=== PATIENT | male | born 1945 | race Caucasian/White ===

== ENCOUNTER 2018-05-03 00:05 | Emergency (ER) | payer MEDICARE, OTHER ==
--- NOTE | 2018-05-03 00:09 | ED Physician Documentation ---
PD HPI HEAD INJURY - Stated complaint Stated Complaint: HEAD LAC - History obtained from History obtained from: Patient - History of Present Illness Mechanism of head injury: Fell Where head injury occurred: Home Timing - onset: How many minutes ago (approximately 30-40 minutes [employer]) Pain level now: 0 Location of injury: Left, Front Associated symptoms: No: LOC, AMS, Amnesia, Nausea / vomiting, Neck pain, Paresthesias Contributing factors: No: Anticoagulated, Intoxicated Recently seen: Not recently seen - Additional information Additional information: tripped and fell, struck forehead onto wood-burning stove, sustained forehead laceration. He also sustained left hand burn when his hand touched the stove. Denies LOC, denies MART Review of Systems Musculoskeletal: reports: Other (left hand burn but he denies having any pain (also reports no significant pain associated with the forehead laceration)). denies: Neck pain Neurologic: reports: Head injury. denies: Focal weakness, Numbness, Confused, Altered mental status, Headache, LOC PD PAST MEDICAL HISTORY - Past Medical History Past Medical History: No - Present Medications Home Medications: Ambulatory Orders Medication Instructions Recorded Confirmed Ascorbic Acid [Vitamin C] 1,000 mg PO DAILY 05/03/18 05/03/18 Aspirin [Adult Aspirin] 81 mg PO DAILY 05/03/18 05/03/18 Multivitamin [Multiple Vitamins] 1 tab PO DAILY 05/03/18 05/03/18 - Allergies Allergies/Adverse Reactions: Allergies Allergy/AdvReac Type Severity Reaction Status Date / Time No Known Drug Allergies Allergy Verified 05/03/18 00:15 - Living Situation Living Situation: reports: With spouse/s.o. Living Arrangement: reports: At home PD ED PE NORMAL - Vitals Vital signs reviewed: Yes - General General: Alert and oriented X 3, No acute distress, Well developed/nourished - HEENT HEENT: PERRL, EOMI - Neck Neck: No bony TTP PD ED PE EXPANDED - HEENT HEENT Visual: 1 - laceration (4 cm length without active bleeding; no bony tenderness) - Extremities HUBERT UE/Hands Visual: 1 - swelling (first degree burn without significant tenderness) Results - Vitals Vitals: Vital Signs - 24 hr 05/03/18 05/03/18 00:12 01:52 Temperature 36.8 C Heart Rate 85 84 Respiratory 18 16 Rate Blood Pressure 166/96 H 144/96 H O2 Saturation 96 96 Oxygen O2 Source Room air Procedures - Laceration (location) Face left Length in cm: 4 Wound type: Linear, Into subcut fat Neurovascular status: Sensory intact, Motor intact, Vascular intact Anesthesia: Lidocaine 1% Wound Preparation: Chlorhexadine, Irrigated copiously NS, Wound explored, To the base. No: FB identified Skin layer closure: Nylon, Interrupted, Running, Size #-0 - enter number (5-0), Other (combination of running and interrupted sutures) Other: Patient tolerated well, No complications, Neurovascular intact, Tetanus booster given Complexity: Simple PD MEDICAL DECISION MAKING - ED course Complexity details: considered differential, d/w patient, d/w family Departure - Departure Disposition: 01 Home, Self Care Clinical Impression: Laceration Condition: Good Instructions: ED Laceration Facial Sutr Tape Follow-Up: GREGG Will [Provider Group] Comments: Follow up with your primary care provider in 7-10 days for removal of the stitches. Apply an antibiotic ointment (such as bacitracin, neosporin, polysporin) twice per day until the stitches are removed. Discharge Date/Time: 05/03/18 01:53
[2018-05-03] MEDS ORDERED: LIDOCAINE 1% 2 ML VIAL SUBQ STA (00:33)
[2018-05-03] MEDS ORDERED: LIDOCAINE 1% 2 ML VIAL ONE (00:34)
[2018-05-03] MEDS ORDERED: BACITRACIN OINT TOP STA (01:24)
[2018-05-03] MEDS ORDERED: TETANUS/DIPHTHERIA/PERTUSSIS 0.5 ML SYRINGE IM ONE (01:24)
[2018-05-03 01:53] VITALS: BP 144/96
== END 2018-05-03 01:53 | disposition home or self-care (01) ==
LOC: ED 00:05
DX: S01.81XA Laceration without foreign body of other part of head, initial encounter (principal); T23.102A Burn of first degree of left hand, unspecified site, initial encounter; T31.0 Burns involving less than 10% of body surface; X15.0XXA Contact with hot stove (kitchen), initial encounter; Y92.009 Unspecified place in unspecified non-institutional (private) residence as the place of occurrence of the external cause; Z23 Encounter for immunization
CPT/HCPCS: 12013; 90471; 90715; 99282; 99283; A9270

== ENCOUNTER 2023-07-14 13:31 | Inpatient (IN) | payer MEDICARE, OTHER ==
--- NOTE | 2023-07-14 14:11 | ED Physician Documentation ---
PD HPI ALTERED MENTAL STATUS - Stated complaint Stated Complaint: CONFUSION - Chief complaint Chief Complaint: Neuro - History obtained from History obtained from: Patient - History of Present Illness Timing - onset: How many weeks ago (notable new symptoms of confusion, word search, but no focal deficits. Has not been to primary care provider for many years. has noted more considerable confusion the past several days.) Timing - duration: Weeks (up to a month or two.) Timing - details: Gradual onset, Still present Quality / character: Confused, Memory Loss Associated symptoms: No: Fever, Headache, Dyspnea, Cough Contributing factors: No: Diabetic, New medication, Recent illness, Recent injury Basline status: Alert and oriented X 3, Ambulatory (works yard and house projects typically.) Similar symptoms before: Has not had sx before Recently seen: Not recently seen (not for several years.) Review of Systems Constitutional: denies: Fever Nose: denies: Rhinorrhea / runny nose, Congestion Throat: denies: Sore throat Respiratory: denies: Cough GI: denies: Abdominal Pain, Vomiting, Diarrhea, Bloody / black stool : reports: Frequency, Hesitancy. denies: Dysuria, Hematuria Skin: denies: Rash, Lesions Neurologic: reports: Generalized weakness. denies: Focal weakness, Near syncope, Headache, Head injury Psychiatric: reports: Other (up often during night to urinate. Feels sleepy during days often. states he only snores some and she has not noted him having apneas.). denies: Depressed Endocrine: denies: Weight loss PD PAST MEDICAL HISTORY - Past Medical History Past Medical History: No Cardiovascular: None Respiratory: None Neuro: None Endocrine/Autoimmune: None GI: None : None HEENT: Chronic hearing loss Psych: None Musculoskeletal: None Derm: None - Past Surgical History Past Surgical History: Yes General: Appendectomy - Present Medications Home Medications: Ambulatory Orders Medication Instructions Recorded Confirmed Ascorbic Acid [Vitamin C] 1,000 mg PO DAILY 05/03/18 05/03/18 Aspirin [Adult Aspirin] 81 mg PO DAILY 05/03/18 05/03/18 Multivitamin [Multiple Vitamins] 1 tab PO DAILY 05/03/18 05/03/18 - Allergies Allergies/Adverse Reactions: Allergies Allergy/AdvReac Type Severity Reaction Status Date / Time No Known Drug Allergies Allergy Verified 07/14/23 13:35 - Living Situation Living Situation: reports: With spouse/s.o. Living Arrangement: reports: At home - Social History Does the pt smoke?: No Smoking Status: Never smoker Does the pt drink ETOH?: Yes Does the pt have substance abuse?: No - Immunizations Immunizations are current?: Yes - POLST Patient has POLST: No PD ED PE NORMAL - Vitals Vital signs reviewed: Yes - General General: Alert and oriented X 3, No acute distress, Well developed/nourished - HEENT HEENT: Atraumatic, PERRL, EOMI - Neck Neck: Supple, no meningeal sign, No adenopathy - Cardiac Cardiac: RRR, No murmur - Respiratory Respiratory: No respiratory distress, Clear bilaterally - Abdomen Abdomen: Normal bowel sounds, Soft, Non tender, Other (fullness in bladder area without tenderness. ) - Male Male : Deferred - Rectal Rectal: Deferred - Back Back: No CVA TTP - Derm Derm: Normal color, Warm and dry - Extremities Extremities: Normal ROM s pain, No edema, No calf tenderness / cord - Neuro Neuro: Alert and oriented X 3 (some mild word search and incomplete sentence structure. But otherwise content is appropriate. 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, No motor deficit, No sensory deficit, Normal speech Eye Opening: Spontaneous Motor: Obeys Commands Verbal: Oriented GCS Score: 15 Results - Vitals Vitals: Vital Signs - 24 hr 07/14/23 07/14/23 13:35 15:39 Temperature 36.5 C Heart Rate 87 90 Respiratory 16 16 Rate Blood Pressure 165/90 H 166/90 H O2 Saturation 99 98 Oxygen O2 Source Room air - Labs Labs: Laboratory Tests 07/14/23 07/14/23 07/14/23 14:11 14:53 14:53 WBC 6.5 RBC 3.52 L Hgb 10.9 L Hct 33.3 L MCV 94.6 H MCH 31.0 MCHC 32.7 RDW 13.4 Plt Count 235 MPV 10.3 Neut # (Auto) 5.1 Lymph # (Auto) 0.7 L Lares # (Auto) 0.6 Eos # (Auto) 0.0 Baso # (Auto) 0.0 Absolute Nucleated RBC 0.00 Nucleated RBC % 0.0 ESR 45 H PT INR Sodium Potassium Chloride Carbon Dioxide Anion Gap BUN Creatinine Estimated GFR (MDRD) Glucose Calcium Phosphorus Magnesium Total Bilirubin AST ALT Alkaline Phosphatase Total Protein Albumin Globulin Albumin/Globulin Ratio Lipase Vitamin B12 TSH Urine Color STRAW Urine Clarity CLEAR Urine pH 6.5 Ur Specific [place] <=1.005 Urine Protein NEGATIVE Urine Glucose (UA) NEGATIVE Urine Ketones NEGATIVE Urine Occult Blood NEGATIVE Urine Nitrite NEGATIVE Urine Bilirubin NEGATIVE Urine Urobilinogen 0.2 (NORMAL) Ur Leukocyte Esterase NEGATIVE Ur Microscopic Review NOT INDICATED Urine Culture Comments NOT INDICATED 07/14/23 07/14/23 14:53 15:15 WBC RBC Hgb Hct MCV MCH MCHC RDW Plt Count MPV Neut # (Auto) Lymph # (Auto) Lares # (Auto) Eos # (Auto) Baso # (Auto) Absolute Nucleated RBC Nucleated RBC % ESR PT 12.0 INR 1.1 Sodium 136 Potassium 5.9 H Chloride 104 Carbon Dioxide 21 Anion Gap 11.0 BUN 74 H Creatinine 7.0 H* Estimated GFR (MDRD) 8 L Glucose 94 Calcium 9.1 Phosphorus 5.1 H Magnesium 2.4 H Total Bilirubin 0.3 AST 7 L ALT 11 Alkaline Phosphatase 132 H Total Protein 7.5 Albumin 3.8 Globulin 3.7 Albumin/Globulin Ratio 1.0 Lipase 23 Vitamin B12 829 TSH 2.38 Urine Color Urine Clarity Urine pH Ur Specific [place] Urine Protein Urine Glucose (UA) Urine Ketones Urine Occult Blood Urine Nitrite Urine Bilirubin Urine Urobilinogen Ur Leukocyte Esterase Ur Microscopic Review Urine Culture Comments - Rads (name of study) head CT Relevant Findings:: Prelim report reviewed (confluent occipital white matter disease. Broad differential. Recommend brain MRI with and without contrast.), EMP independent interpretation of test abd/pelvic CT Relevant Findings:: Prelim report reviewed (enlarged prostate irregularly with apparent invasion to wall of rectum. Bladder thickening could be due to outlet obstruction chronic. osteoblastic bone lesions. c/w met prostate CA. ), EMP independent interpretation of test (enlarged prostate. Wang in bladder. hydroureter and nephrosis. Thickened bladder wall. bone lesions in spine.) PD Medical Decision Making - ED course Complexity details: reviewed results, considered differential (confusion and some expressive aphasia, with general weakness graudally but relatively new onset of weeks/month. Broad differential and will eval metabolic, brain, endocrine, etc. Less likely infectious, and does not take meds so unlikely toxic. ), d/w jewelry consultant (Hospitalist - with uremia likely representing most of his symptoms, due to outlet obstruction. Pending CT reports.) Reviewed Lab Results: Most notable is the patient's creatinine of 7. He has not been to a provider for a long time and we have no reason to her available prior labs for him. Electrolytes are slightly elevated of potassium, magnesium, phosphorus so unlikely a totally acute renal failure. He does have a large amount of urine in the bladder by bladder scanner and had a Wang placed with initially clear urine out. It did have a little bit of blood subsequently which then cleared again. Nursing notes some resistance at the level of the prostate but able to get the Wang placed without any special techniques. CT of the head showed general diffuse posterior white matter abnormality. MRI was recommended. Consideration would be edema or effect of blood pressure. CT of the abdomen pelvis showed enlarged prostate and bladder wall thickening with outlet obstruction of hydro nephrosis and hydroureter. Wang is in place. There are bone lesions noted in the spine and some attachment of the prostate to the rectal wall suggesting invasive or metastatic process. The patient and his are kept apprised of the lab findings. At this point no signs of diabetes. Thyroid is normal. Kidney function electrolytes as noted. Blood count is good without any anemia. Inflammatory changes show an elevated ESR of 45. I will add a PSA. Other labs to look for confusion etc. are still pending which include some vitamin levels. Departure - Departure Disposition: 66 [facility] DC/Xfer Clinical Impression: Acute bilateral obstructive uropathy, Elevated serum creatinine, Acute kidney injury, Enlarged prostate, Abnormal CT scan of head Condition: Stable Record reviewed to determine appropriate education?: Yes Follow-Up: Bernardo Gary MD [Provider Admit Priv/Credential] - Comments: At this point the main symptoms likely are related to an improper filtering and functioning of the kidneys due to a blockage at the out put of the bladder (most likely from an enlarged prostate). This will cause a back pressuring of the urine up into the kidneys so they do not filter appropriately and you can accumulate "waste material" in the system. 1 of these is called creatinine and your creatinine level was elevated at 7 which is well above normal. This accumulation in the bloodstream can cause the confusion and symptoms you are having. Commonly this will improve fairly promptly as the urine flow improves with the catheter. Your electrolytes were a bit elevated in correlation with the impaired urine output. There were not significant elevated but potassium, phosphorus, magnesium were all a bit elevated. Your head CT scan was showing some general change in the density of the tissue. This is nonspecific and an MRI was recommended by the radiologist. We can do this tomorrow most likely. We are having you stay in the hospital overnight to ensure you have improvement in your blood test functions in the urine flow remains appropriate and to get further testing tomorrow. Forms: PCP List
[2023-07-14 14:57] LABS: BASOPHILS % (AUTO) 0.6 %; EOSINOPHILS % (AUTO) 0.6 %; HCT - HEMATOCRIT 33.3 % (42.0-52.0); HGB - HEMOGLOBIN 10.9 g/dL (14.0-18.0); LYMPHOCYTES # (AUTO) 0.7 10^3/uL (1.5-3.5); LYMPHOCYTES % (AUTO) 10.6 %; MEAN CORPUSCULAR HGB CONC 32.7 g/dL (32.0-36.0); MEAN CORPUSCULAR VOLUME 94.6 fL (80.0-94.0); MEAN PLATELET VOLUME 10.3 fL (7.4-11.4); MONOCYTES # (AUTO) 0.6 10^3/uL (0.0-1.0); NEUTROPHILS # (AUTO) 5.1 10^3/uL (1.5-6.6); NEUTROPHILS % (AUTO) 78.9 %; PLT - PLATELET COUNT 235 10^3/uL (130-450); RED BLOOD COUNT 3.52 10^6/uL (4.70-6.10); RED CELL DISTRIBUTION WIDTH 13.4 % (12.0-15.0); WHITE BLOOD COUNT 6.5 x10^3/uL (4.8-10.8)
[2023-07-14 15:07] LABS: BILIRUBIN,URINE NEGATIVE (NEGATIVE); GLUCOSE, URINE (UA) NEGATIVE (NEGATIVE); KETONES,URINE (UA) NEGATIVE (NEGATIVE); LEUKOCYTE ESTERASE, URINE NEGATIVE (NEGATIVE); NITRITE,URINE NEGATIVE (NEGATIVE); OCCULT BLOOD,URINE NEGATIVE (NEGATIVE); PH,URINE 6.5 PH (5.0-7.5); PROTEIN,URINE NEGATIVE (NEGATIVE); UROBILINOGEN,URINE 0.2 (NORMAL) E.U./dL (NORMAL)
[2023-07-14 15:10] LABS: CLARITY,URINE CLEAR (CLEAR)
[2023-07-14 15:25] LABS: MAGNESIUM 2.4 mg/dL (1.7-2.3); PHOSPHORUS 5.1 mg/dL (2.5-5.0)
[2023-07-14 15:27] LABS: ALBUMIN 3.8 g/dL (3.2-5.5); BILIRUBIN,TOTAL 0.3 mg/dL (0.2-1.0); CALCIUM 9.1 mg/dL (8.5-10.3); POTASSIUM 5.9 mmol/L (3.5-4.5); THYROID STIMULATING HORMONE 2.38 uIU/mL (0.34-5.60); TOTAL PROTEIN 7.5 g/dL (6.4-8.9)
[2023-07-14 15:27] LABS: INR 1.1 (0.8-1.2)
--- NOTE | 2023-07-14 16:32 | CT Report ---
PROCEDURE: CT brain without contrast INDICATIONS: confused/ aphasia mild for month or more TECHNIQUE: Helical axial CT of the brain was obtained without contrast and reformatted in multiple p lanes. Radiation dose reduction was achieved using automated exposure control or adjustment of mA and /or kV according to patient size. COMPARISON: None FINDINGS: CSF spaces: Ventricles are appropriate in size and position. No hydrocephalus. Basal cisterns unre markable. Brain: No midline shift. No intracranial masses or hemorrhage. [place]-white matter interface is norm al. Age-appropriate volume loss. Additionally, there is confluent white matter hypoattenuation parti cularly prominent in the occipital lobes bilaterally. Much smaller associated cortical involvement no hi as well Skull and face: Chronic appearing left mucosal sinus disease involves the left maxillary, frontal an d atelectatic left sphenoid sinus with wall thickening and near complete sinus opacification Sinuses: Visualized sinuses and mastoids are clear. IMPRESSION: Confluent occipital white matter disease. Differential is broad and include posterior reversible ence phalopathy syndrome, infectious/inflammatory etiologies, unusual chronic ischemic change, and less li lu cerebral vasogenic edema resulting from nonvisualized underlying mass lesion. Advise follow-up M WA brain with and without contrast Reviewed by: Be Zendejas MD on 07/14/2023 3:31 PM AKST Approved by: Be Zendejas MD on 07/14/2023 3:31 PM AKST Station ID: [id number]
--- NOTE | 2023-07-14 16:54 | CT Report ---
PROCEDURE: CT abdomen and pelvis without contrast INDICATIONS: urinary retention/ confusion TECHNIQUE: Helical axial CT of the abdomen and pelvis was obtained without intravenous contrast and reformatted in multiple planes. Radiation dose reduction was achieved utilizing automated exposure co ntrol or adjustment of mA and/or kV according to patient size. COMPARISON: None. FINDINGS: Lower thorax: The lung bases are clear. Heart size normal. Moderatehiatal hernia. Liver: Normal in size and attenuation. No contour deformity present. Biliary system: Cholelithiasis without CT evidence of acute cholecystitis Pancreas: Unremarkable without mass or inflammation evident. Spleen: Normal in size and density. Adrenals: Normal morphology and density. Reproductive system: Irregular enlarged prostate elevates the bladder floor and grossly measures 8.6 x 5.4 x 4.3 cm. However, prostate is contiguous with anterior wall of the rectum which also shows ir regular wall thickening probably reflecting direct invasion of prostate cancer. No bowel obstruction. Urinary system: Severe bilateral hydronephrosis and hydroureter associated with circumferential irre gular wall thickening of the bladder. Wang catheter is present in the bladder as well as air reflect ing recent instrumentation noted. There is a 4 x 3.2 cm posteriorly oriented bladder diverticulum Gastrointestinal system: As below. Left-sided diverticulosis without evidence of diverticulitis no b owel obstruction Appendix: No findings to suggest acute appendicitis. Peritoneal spaces: No mesenteric or retroperitoneal adenopathy. No free air. No free fluid. Vasculature: The IVC, aorta and iliac vasculature are unremarkable. Abdominal wall: Abdominal wall is intact without evidence of ventral or inguinal hernias. Musculoskeletal: Diffuse osteoblastic metastasis noted throughout the lumbar spine, pelvis and proxi mal femurs. T12 wedge-shaped compression fracture. Old left femoral neck and acetabular fracture with subchondral cysts and irregular remodeling. Associated atrophy of the gluteal and right iliopsoas mu scle IMPRESSION: 1. Metastatic prostate cancer. Prostate is enlarged shows extracapsular local invasion of the rectum posteriorly as well as possible invasion of the bladder. Widespread osteoblastic metastatic disease. 2. Diffuse irregular bladder wall thickening. Differential includes direct invasion versus chronic ou tlet obstruction. Resultant bladder wall diverticulum as well as severe bilateral hydronephrosis 3. Additional chronic findings as above Reviewed by: Be Zendejas MD on 07/14/2023 3:52 PM AKST Approved by: eB Zendejas MD on 07/14/2023 3:52 PM AKST Station ID: [id number]
[2023-07-14] MEDS ORDERED: ONDANSETRON 4 MG/2 ML VIAL IVP PRN (17:23)
[2023-07-14] MEDS ORDERED: SODIUM CHLORIDE FLUSH 0.9% 10 ML SYRINGE IVP PRN (17:23)
--- NOTE | 2023-07-14 17:35 | HISTORY & PHYSICAL EXAMINATION ---
Chief Complaint - Chief Complaint Chief Complaint: Confusion <Andreea Sanchez - Last Filed: 07/17/23 14:55> History of Present Illness - Admitted From Admitted From:: ED - History Obtained From History obtained from: ED provider, the pt and his at bedside <Andreea Sanchez - Last Filed: 07/17/23 14:55> - History of Present Illness HPI Comment/Other: This is a 78-year-old male who has not seen a doctor in over 10 years and takes no prescription medications. He is brought in by his because of worsening confusion. She noticed that the confusion started about a month ago with trouble finding words and it is definitely worse over the past 1 week and this morning he said "How do I clear the code?", when he was washing dishes. He told his he did not know "which way was up or down." There has been increased urinary frequency and small amounts of urine eliminated. The patient himself thought he had diabetes because he was also thirsty, therefore he eliminated his sweets. With that, he lost 8 pounds in the last 1 month There has not been any fever, cough, dyspnea, abdominal pain, syncope, leg edema. In the ER he was found to have large amount of volume in his bladder on scanning and a Wang was inserted. 1400 cc was drained immediately and he another 2.5 L over several more hours. Brain CT imaging was done that showed an occipital mass of his brain with etiology having a large differential per the report, one of which could be metastasis, and an MRI was recommended. Abdomen/pelvis CT was done that showed a very enlarged prostate invading the rectum posteriorly, bilateral hydronephrosis and hydroureters, his Wang was seen draining the bladder. There are multiple areas of metastasis noted of the lumbar spine and femur. His labs came back showing a creatinine of 7 and potassium of 5.6. There are no prior labs for comparison at this hospital. Urinalysis was within normal limits. The ED provider spoke to me about this patient and he will be admitted to manage V[place], hyperkalemia, hydronephrosis and urinary obstruction from a very large prostate with probable prostatic cancer, since the large prostate is invading the neighboring colon and he has mets seen of the spine and femur and possibly to the brain. His CODE BLUE statis is Full Code. (LauraAndreea Sheth) History - Past Medical History Cardiovascular: reports: None Respiratory: reports: None Neuro: reports: None Endocrine/Autoimmune: reports: None GI: reports: None : reports: None HEENT: reports: Chronic hearing loss Psych: reports: None Musculoskeletal: reports: None Derm: reports: None - Past Surgical History General: reports: Appendectomy - Family & Social History Living arrangement: At home Living Situation: With spouse/s.o. Social History Notes: He is retired [employer]. He smoked when he was young. He drinks alcohol approximately 2 times per week or less. He has been "considering" going to a primary care provider but never scheduled an appointment. - POLST Patient has POLST: No <Andreea Sanchez - Last Filed: 07/17/23 14:55> Meds/Allgy <[place] Patel - Last Filed: 07/14/23 20:45> <Andreea Sanchez - Last Filed: 07/17/23 14:55> - Home Medications Home Medications: Ambulatory Orders Medication Instructions Recorded Confirmed No Known Home Medications 07/17/23 07/17/23 - Allergies Allergies/Adverse Reactions: Allergies Allergy/AdvReac Type Severity Reaction Status Date / Time No Known Drug Allergies Allergy Verified 07/14/23 13:35 Review of Systems - Constitutional Constitutional: reports: Weight loss (8 lb loss over 1 month, after cutting out sweets) - Eyes Eyes: reports: Corrective lenses - All Other Systems All Other Systems: reports: Other (As per HPI and reported by the since the patient is confused and can give no details.) <Andreea Sanchez - Last Filed: 07/17/23 14:55> Exam - Physical Exam General Appearance: positive: No acute distress, Alert Eyes Bilateral: positive: Normal inspection, EOMI ENT: positive: ENT inspection nml, No signs of dehydration Neck: positive: Nml inspection, No JVD Respiratory: positive: No respiratory distress, Breath sounds nml Cardiovascular: positive: Regular rate & rhythm, No murmur Abdomen: positive: Non-tender, Nml bowel sounds, No distention Rectal: positive: Other (Wang in place, draining bloody urine) Skin: positive: Warm, Dry Extremities: positive: Non-tender, No pedal edema Neurologic/Psychiatric: positive: Oriented x3, CN's nml (2-12), Motor nml, Other (Poor memory) <Andreea Sanchez - Last Filed: 07/17/23 14:55> - Vital Signs Vital Signs: Vital Signs x48h Temp Pulse Pulse Resp BP BP Pulse Ox 07/14/23 19:18 37.1 C 87 16 157/98 H 96 07/14/23 15:39 90 16 166/90 H 98 07/14/23 13:35 36.5 C 87 16 165/90 H 99 Conclusion/Plan - Lab Results Fish Bones: 07/14/23 14:53 07/14/23 14:53 <[place] Patel - Last Filed: 07/14/23 20:45> - Problem List (1) Acute kidney injury Conclusion/Plan: His creatinine is 7. We have no prior labs here and he has not seen a medical provider in over 10 years, for getting any other records. Plan: Continue with Wang for urinary bladder drainage and relief of the obstruction Start gentle IV fluids. Follow his I's and O's and expect him to have a postobstructive diuresis therefore IV rate will need to be increased Avoid nephrotoxins Follow BMP daily Check of his A1c, to check for DM, was sent off but result pending Will order a low-salt and renal diet (2) AMS (altered mental status) Conclusion/Plan: The cause may be from his uremia or due to the brain mass seen on head CT. His vital signs are normal and his TSH is normal. Plan: Monitor his neuro status Will obtain a brain MRI in the morning. Will consider a neurology consult and mannitol or steroids if there is suspicion of increased intracranial pressure from this mass Follow his BUN/creatinine daily and continue to treat the obstructive uropathy A check of thiamine level and vitamin D level were sent off but results are pending (3) Acute bilateral obstructive uropathy Conclusion/Plan: As per presentation and CT imaging Plan: Continue Wang for bladder drainage of the obstruction Follow his I's and O's and expect him to have a postobstructive diuresis therefore IV rate will need to be increased Follow BUN/creatinine daily He and the will need training for going home with a Wang catheter (4) Enlarged prostate Conclusion/Plan: It is very enlarged and also invading the neighboring colon making it highly suspicious for prostate cancer. In addition there are local mets to the spine and femur. Plan: Will need Urology evaluation and management A PSA level was sent off but result is still pending (5) Abnormal CT scan of head Conclusion/Plan: Findings are suspicious for a mass which therefore could be metastasis Plan: Monitor his neuro status Will obtain a brain MRI in the morning. Will consider a neurology consult and mannitol or steroids if there is suspicion of increased intracranial pressure from this mass (6) Hyperkalemia Conclusion/Plan: His potassium is 5.6. This is likly from his abnormal renal function. Plan: Monitor K every 12 hours and BMP daily Give insulin & D50 if it rises close to 6 Place on telemetry to watch for arrhythmias (7) HTN (hypertension) Conclusion/Plan: BP is running 166/90. Unknown if this was chronic and untreated or if it is elevated due to his presumably recent renal disease Plan: He will be started on IV fluids because postobstructive diuresis is expected Will give hydralazine for BP control Will order a low-salt and renal diet - Lab Results Fish Bones: 07/17/23 04:15 07/17/23 04:15 - Diagnostic Imaging Results Diagnostic Imaging Results: positive: Final report reviewed <Andreea Sanchez - Last Filed: 07/17/23 14:55> - Other Other Results/Comments: Attestation: The patient is expected to be hospitalized for greater than 2 midnights and is expected to be discharged or transferred to another facility within 96 hours: Yes (Andreea Sanchez)
[2023-07-14] MEDS: SODIUM CHLORIDE 0.9% 1,000 ML IV SCH ×2 (18:44→19:26)
[2023-07-14 20:55] LABS: ESTIMATED AVERAGE GLUCOSE 117 mg/dL (70-100); HEMOGLOBIN A1c% 5.7 % (4.27-6.07)
[2023-07-14] MEDS: HEPARIN 5,000 UNIT/ML VIAL SUBQ SCH (21:16)
[2023-07-15] MEDS: SODIUM CHLORIDE FLUSH 0.9% 10 ML SYRINGE IVP SCH (00:08)
[2023-07-15 05:42] LABS: HCT - HEMATOCRIT 36.9 % (42.0-52.0); HGB - HEMOGLOBIN 12.3 g/dL (14.0-18.0); MEAN CORPUSCULAR HEMOGLOBIN 31.5 pg (27.0-31.0); MEAN CORPUSCULAR HGB CONC 33.3 g/dL (32.0-36.0); MEAN CORPUSCULAR VOLUME 94.4 fL (80.0-94.0); MEAN PLATELET VOLUME 11.1 fL (7.4-11.4); RED BLOOD COUNT 3.91 10^6/uL (4.70-6.10); RED CELL DISTRIBUTION WIDTH 13.3 % (12.0-15.0); WHITE BLOOD COUNT 11.1 x10^3/uL (4.8-10.8)
[2023-07-15 05:57] LABS: CALCIUM 8.9 mg/dL (8.5-10.3); PHOSPHORUS 4.2 mg/dL (2.5-5.0)
--- NOTE | 2023-07-15 08:21 | PROVIDER PROGRESS NOTE ---
Assessment/Plan - Problem List (1) Postobstructive diuresis Assessment/Plan: After Wang was inserted, his urine output shows diuresis, as expected He is -6 L and fluid balance as of this morning Plan: Increase the IV NS rate to keep up with his fluid losses and add LR iv fluids as well I will give a bolus if he develops a "soft blood pressure" (2) Acute kidney injury Conclusion/Plan: His creatinine was 7 at adm. We have no prior labs here and he has not seen a medical provider in over 10 years, for getting any other records. I ordered a low-salt and renal diet All labs were reviewed. Today his creatinine is down to 3 Check of his A1c, to check for DM, came back at 5.7 Plan: Continue with Wang for urinary bladder drainage and relief of the obstruction Cont IV fluids. Follow his I's and O's and expect postobstructive diuresis, therefore IV rate to be increased Avoid nephrotoxins Follow BMP daily (3) AMS (altered mental status) Conclusion/Plan: The cause of his generalized confusion and poor memory may be from the uremia or due to the brain mass seen on head CT. His TSH is normal. His speech and responses are quicker today than at admission, as the BUN came down. Plan: Brain MRI to be done today. Will consider a neurology consultor mannitol or steroids if there is suspicion of increased intracranial pressure from this mass Follow his BMP daily and continue to treat the uremia A check of thiamine level and vitamin D level were sent off but results are pending (4) Acute bilateral obstructive uropathy Conclusion/Plan: As per presentation and CT imaging Plan: Continue Wang for bladder drainage of the obstruction Follow his I's and O's and expect postobstructive diuresis. Will try to keep intake closer to outpt Follow BUN/creatinine daily He and the will need training for going home with a Wang catheter (5) Enlarged prostate Conclusion/Plan: It is very enlarged and was described as invading the neighboring colon making it highly suspicious for prostate cancer. In addition there are local mets to the spine and femur. PSA was ordered by the ER provider. This is a send out lab. His EMR now shows that the PSA test is canceled, unclear why. I had a discussion with the pt and , revealing these results and suspision that he has prostate cancer with mets Plan: He will need Urology evaluation and management. Will reach out to [facility] tomorrow (Tues) to see if that needs to be an inpatient consult (6) Abnormal CT scan of head Conclusion/Plan: CT findings are suspicious for a mass which therefore could be metastasis Brain MRI was done this afternoon, results are still pending at 1900 Plan: I had a discussion with the pt and and discussed the suspicion of prostate cancer with mets Will consider a Neurology consult and mannitol or steroids if there is suspicion of increased intracranial pressure from this mass (7) Hyperkalemia Conclusion/Plan: His potassium was 5.9 at adm and is 5 today. This is likely from his abnormal renal function. Plan: Monitor K every 12 hours and BMP daily Give insulin & D50 if K rises close to 6 Remain on telemetry to watch for arrhythmias (8) HTN (hypertension) Conclusion/Plan: BP is running 160-180/90-100. Unknown if this was chronic and untreated or if it is elevated due to his presumably recent renal disease or from the brain mass Plan: Cont IV fluids Will give hydralazine for BP control Cont low-salt and renal diet (9) Tachycardia HR is as high as 110 today. I suspect this is from intravascular volume dep letion because of his 5 L negative fluid status since yesterday, caused by postobstructive diuresis EKG was done today which I interpreted. That showed sinus tachycardia, rate 107, poor R wave progression. There is no old EKG available for comparison. Plan: Increase IV fluids as in #1 Remain on telemetry - Current Meds Current Meds: Current Medications Generic Name Dose Route Start Last Admin Trade Name Lv PRN Reason Stop Dose Admin Heparin Sodium (Porcine) 5,000 unit 07/14/23 21:00 07/14/23 21:16 Heparin 5,000 Unit/Ml Vial SUBQ 5,000 unit BID LEILANI Administration Sodium Chloride 10 ml 07/15/23 01:00 07/15/23 00:08 Sodium Chloride Flush 0.9% 10 Ml Syringe IVP Not Given 0100,0900,1700 LEILANI - Lab Result Fish Bone Diagrams: 07/15/23 05:13 07/15/23 16:03 - EKG Results EKG Interpreted Independently: Yes EKG Comparison: Old EKG unavailable EKG Findings: Sinus tachycardia, rate 107, poor R wave progression. There is no old EKGs available for comparison. - Additional Planning My Orders: My Active Orders 07/14/23 17:23 Activity Orders [RC] Q2HR IO [RC] IOSHIFT Incentive Spirometry - RT [RC] .TID Initiate Bowel Care Protocol [RC] .protocol Initiate Line Care Protocol [RC] QSHIFT Initiate Personal Care Protoco [RC] .protocol Oxygen Therapy [RC] .PRN Telemetry- [RC] Q4HR Vital Signs [RC] Q4H Acetaminophen [Tylenol] 650 mg PO Q4HR PRN Ondansetron Inj [Zofran Inj] 4 mg IVP Q6HR PRN Sodium Chloride Flush 0.9% [Normal Saline Flush 0.9%] 10 ml IVP PRN PRN Code Status [OTHERS] Routine Condition of Patient [OTHERS] Routine DVT Prophylaxis [OTHERS] Routine 07/14/23 17:26 Daily Weight [RC] 0600 IV Insert [RC] .ONCE 07/14/23 21:00 Heparin [Heparin Sodium (Porcine)] 5,000 unit SUBQ BID 07/15/23 01:00 Sodium Chloride Flush 0.9% [Normal Saline Flush 0.9%] 10 ml IVP 0100,0900,1700 07/15/23 Breakfast Low Sodium Diet [DIET] 07/15/23 08:19 Sodium Chloride 0.9% [Normal Saline 0.9%] 1,000 ml IV 150 mls/hr 07/15/23 11:30 Brain WO [MRI] Routine 07/15/23 16:00 POTASSIUM [CHEM] Routine 07/16/23 05:00 BMP - BASIC METABOLIC PANEL [CHEM] DAILYLAB CBC W/O DIFF (HEMOGRAM) [HEME] DAILYLAB 07/17/23 05:00 BMP - BASIC METABOLIC PANEL [CHEM] DAILYLAB CBC W/O DIFF (HEMOGRAM) [HEME] DAILYLAB 07/18/23 05:00 BMP - BASIC METABOLIC PANEL [CHEM] DAILYLAB CBC W/O DIFF (HEMOGRAM) [HEME] DAILYLAB Subjective - Subjective Patient Reports: Feeling Better (Speech is more sharp but memory is still poor) Objective Vital Signs: Vital Signs - 24 hr 07/14/23 07/14/23 07/14/23 13:35 15:39 19:18 Temperature 36.5 C 37.1 C Heart Rate 87 90 Heart Rate [ Brachial] Heart Rate [ 87 Monitoring electrodes] Respiratory 16 16 16 Rate Blood Pressure 165/90 H 166/90 H Blood Pressure 157/98 H [Left Brachial artery] Blood Pressure [Right Brachial artery] O2 Saturation 99 98 96 07/14/23 07/15/23 23:54 04:31 Temperature 36.6 C 37.1 C Heart Rate Heart Rate [ 100 Brachial] Heart Rate [ 101 H Monitoring electrodes] Respiratory 16 18 Rate Blood Pressure Blood Pressure 146/93 H [Left Brachial artery] Blood Pressure 157/96 H [Right Brachial artery] O2 Saturation 96 97 Oxygen O2 Source Room air I&O (Last 24 Hrs): Intake and Output Totals x24h 07/13/23 07/14/23 07/15/23 23:59 23:59 23:59 Intake Total 82.5 975.333 Output Total 5650 1725 Balance -5567.5 -749.667 General: Alert, No acute distress, Other ([place]) HEENT: Mucous membr. moist/pink Neck: Supple, No JVD Neuro: Alert, Non Focal, Other (Poor memory. [place], has bilat hearing aids.) Cardiovascular: Regular rate, No murmurs Respiratory: No respiratory distress Abdomen: Soft, No tenderness Genitourinary: Other (Wang in place) Extremities: No clubbing, No edema, No tenderness/swelling - Results Results: Laboratory Results WBC 11.1 x10^3/uL (4.8-10.8) H 07/15/23 05:13 RBC 3.91 10^6/uL (4.70-6.10) L 07/15/23 05:13 Hgb 12.3 g/dL (14.0-18.0) L 07/15/23 05:13 Hct 36.9 % (42.0-52.0) L 07/15/23 05:13 MCV 94.4 fL (80.0-94.0) H 07/15/23 05:13 MCH 31.5 pg (27.0-31.0) H 07/15/23 05:13 MCHC 33.3 g/dL (32.0-36.0) 07/15/23 05:13 RDW 13.3 % (12.0-15.0) 07/15/23 05:13 Plt Count 267 10^3/uL (130-450) 07/15/23 05:13 MPV 11.1 fL (7.4-11.4) 07/15/23 05:13 Neut # (Auto) 5.1 10^3/uL (1.5-6.6) 07/14/23 14:53 Lymph # (Auto) 0.7 10^3/uL (1.5-3.5) L 07/14/23 14:53 [place] # (Auto) 0.6 10^3/uL (0.0-1.0) 07/14/23 14:53 Eos # (Auto) 0.0 10^3/uL (0.0-0.7) 07/14/23 14:53 Baso # (Auto) 0.0 10^3/uL (0.0-0.1) 07/14/23 14:53 Absolute Nucleated RBC 0.00 x10^3/uL 07/14/23 14:53 Nucleated RBC % 0.0 /100WBC 07/14/23 14:53 ESR 45 mm/Hr (0-20) H 07/14/23 14:53 PT 12.0 secs (9.9-12.6) 07/14/23 15:15 INR 1.1 (0.8-1.2) 07/14/23 15:15 Sodium 141 mmol/L (135-145) 07/15/23 05:13 Potassium 5.0 mmol/L (3.5-4.5) H 07/15/23 05:13 Chloride 109 mmol/L (101-111) 07/15/23 05:13 Carbon Dioxide 22 mmol/L (21-32) 07/15/23 05:13 Anion Gap 10.0 (6-13) 07/15/23 05:13 BUN 40 mg/dL (6-20) H 07/15/23 05:13 Creatinine 3.0 mg/dL (0.6-1.3) H 07/15/23 05:13 Estimated GFR (MDRD) 20 (>89) L 07/15/23 05:13 Glucose 104 mg/dL (74-104) 07/15/23 05:13 Estimat Average Glucose 117 mg/dL (70-100) H 07/14/23 14:53 Hemoglobin A1c % 5.7 % (4.27-6.07) 07/14/23 14:53 Calcium 8.9 mg/dL (8.5-10.3) 07/15/23 05:13 Phosphorus 4.2 mg/dL (2.5-5.0) 07/15/23 05:13 Magnesium 2.4 mg/dL (1.7-2.3) H 07/14/23 14:53 Total Bilirubin 0.3 mg/dL (0.2-1.0) 07/14/23 14:53 AST 7 IU/L (10-42) L 07/14/23 14:53 ALT 11 IU/L (10-60) 07/14/23 14:53 Alkaline Phosphatase 132 IU/L (42-121) H 07/14/23 14:53 Total Protein 7.5 g/dL (6.4-8.9) 07/14/23 14:53 Albumin 3.8 g/dL (3.2-5.5) 07/14/23 14:53 Globulin 3.7 g/dL (2.1-4.2) 07/14/23 14:53 Albumin/Globulin Ratio 1.0 (1.0-2.2) 07/14/23 14:53 Lipase 23 U/L (11-82) 07/14/23 14:53 Vitamin B12 829 pg/mL (180-914) 07/14/23 14:53 TSH 2.38 uIU/mL (0.34-5.60) 07/14/23 14:53 Urine Color STRAW 07/14/23 14:11 Urine Clarity CLEAR (CLEAR) 07/14/23 14:11 Urine pH 6.5 PH (5.0-7.5) 07/14/23 14:11 Ur Specific [place] <=1.005 (1.002-1.030) 07/14/23 14:11 Urine Protein NEGATIVE mg/dL (NEGATIVE) 07/14/23 14:11 Urine Glucose (UA) NEGATIVE mg/dL (NEGATIVE) 07/14/23 14:11 Urine Ketones NEGATIVE mg/dL (NEGATIVE) 07/14/23 14:11 Urine Occult Blood NEGATIVE (NEGATIVE) 07/14/23 14:11 Urine Nitrite NEGATIVE (NEGATIVE) 07/14/23 14:11 Urine Bilirubin NEGATIVE (NEGATIVE) 07/14/23 14:11 Urine Urobilinogen 0.2 (NORMAL) E.U./dL (NORMAL) 07/14/23 14:11 Ur Leukocyte Esterase NEGATIVE (NEGATIVE) 07/14/23 14:11 Ur Microscopic Review NOT INDICATED 07/14/23 14:11 Urine Culture Comments NOT INDICATED 07/14/23 14:11
[2023-07-15] MEDS: SODIUM CHLORIDE 0.9% 1,000 ML IV SCH (08:39)
[2023-07-15] MEDS: METOPROLOL SUCCINATE 25 MG TABLET PO SCH (12:31)
[2023-07-15] MEDS: hydrALAZINE INJ 20 MG/ML VIAL IVP PRN (12:32)
[2023-07-15] MEDS: LACTATED RINGERS 1,000 ML IV SCH (13:32)
--- NOTE | 2023-07-15 20:52 | MRI Report ---
PROCEDURE: Brain WO INDICATIONS: Confusion, abnormal head CT TECHNIQUE: Noncontrast axial T1 spin echo, axial T2 fast spin echo, sagittal and axial FLAIR, coronal T2 fast sp in echo, axial gradient echo, axial diffusion and ADC through the brain. COMPARISON: CT head 07/14/2023 FINDINGS: Image quality: Excellent. CSF Spaces: Basal cisterns are patent. No extra-axial fluid collections. Ventricles are normal in size and shape. Brain: No intracranial masses or hemorrhage. [place]/white matter interface is normal. Brainstem appe ars normal. Diffusion-weighted images demonstrate no acute ischemic insult. No chronic ischemic ins ults. Normal intravascular flow voids are present. There is confluent areas of T2 and FLAIR hyperin tensity within the parietal-occipital lobes bilaterally. These areas do not correspond to areas of re stricted diffusion. Skull and face: Calvarium has normal marrow signal. Orbits appear normal. Sinuses: Sinuses demonstrate scattered mucosal thickening most severe with complete opacification of the left maxillary sinus. IMPRESSION: Confluent hyperintensities within the bilateral parietal occipital lobes as described above are uncha nged compared to prior exam. Overall appearance is nonspecific and differential includes posterior re versible encephalopathy syndrome, infection/inflammatory, progressive multifocal leukoencephalopathy, hypoxic ischemic encephalopathy or less likely bilateral underlying masses with subsequent vasogenic edema. Recommend correlation to patient's symptoms and follow-up imaging to document resolution. Rec ommend with and without contrast on subsequent imaging. Reviewed by: Taty Madsen MD on 07/15/2023 8:51 PM PST Approved by: Taty Madsen MD on 07/15/2023 8:51 PM PST Station ID: [id number]
--- NOTE | 2023-07-16 10:17 | PHARMACY PROGRESS NOTE ---
- Best Possible Medication History Admit Date and Time: 07/14/23 1723 Processed by: Pharmacy Medication History completed: Yes Patient Interview: Completed As the person ultimately responsible for medication therapy, providers are able to order a medication from an existing home medication list in [facility] via the "Reconcile Routine" prior to Confirmation of that medication by patient support partner. Such practice is discouraged except when the physician, in their clinical con gment, deems that a medical need exists for a medication without regard to previous use.
--- NOTE | 2023-07-16 16:17 | CONSULTATION NOTE ---
Referring Provider Name of Referring Provider:: Dr Hays Consult Date: 07/16/23 History of Present Illness - Admitted From Admitted From:: ER - History Obtained From Records Reviewed: ER, EMR History obtained from: Patient, , EMR Exam Limitations: none - History of Present Illness HPI Comment/Other: Kenny is a 78-year-old male who has had poor prior follow-up with physicians. He has not seen a doctor in many years. He presented to the hospital on Saturday with altered mental status and confusion. He was noted to have a creatinine of 7 and a distended bladder. CT scan after catheter placement still showed bilateral hydroureteronephrosis. Imaging was also concerning for diffuse metastatic prostate cancer with osteoblastic lesions throughout his spine, pelvis and proximal femurs along with likely local invasion of the rectum and possibly bladder. He was admitted for further monitoring and he did show a postobstructive diuresis putting out 6 L a day of urine output. His creatinine yesterday improved to 3. He now feels better and his at bedside confirms that his altered mental status is improving. Discussing with the patient he finds the catheter bothersome but he understands it is helping him. He denies family history of prostate cancer. He has never had a PSA test before. He denies focal bony pain History - Past Medical History Cardiovascular: reports: None Respiratory: reports: None Neuro: reports: None Endocrine/Autoimmune: reports: None GI: reports: None : reports: None HEENT: reports: Chronic hearing loss Psych: reports: None Musculoskeletal: reports: None Derm: reports: None - Past Surgical History General: reports: Appendectomy - Family & Social History Living arrangement: At home Living Situation: With spouse/s.o. Social History Notes: He is retired [employer]. He smoked when he was young. He drinks alcohol approximately 2 times per week or less. He has been "considering" going to a primary care provider but never scheduled an appointment. - POLST Patient has POLST: No Meds/Allgy - Allergies Allergies/Adverse Reactions: Allergies Allergy/AdvReac Type Severity Reaction Status Date / Time No Known Drug Allergies Allergy Verified 07/14/23 13:35 Exam - Vital Signs Vital Signs: Vital Signs x48h Temp Pulse Resp BP Pulse Ox 07/16/23 15:50 37.1 C 98 16 126/93 H 96 07/16/23 09:00 37.1 C 106 H 18 155/102 H 97 - Physical Exam General Appearance: positive: No acute distress, Other (sitting in chair AOX3) Conclusion and Plan - Lab Results Laboratory Results 07/15/23 16:03: Potassium 4.5 07/15/23 05:13: Sodium 141, Potassium 5.0 H, Chloride 109, Carbon Dioxide 22, Anion Gap 10.0, BUN 40 H, Creatinine 3.0 H, Estimated GFR (MDRD) 20 L, Glucose 104, Calcium 8.9, Phosphorus 4.2 07/15/23 05:13: WBC 11.1 H, RBC 3.91 L, Hgb 12.3 L, Hct 36.9 L, MCV 94.4 H, MCH 31.5 H, MCHC 33.3, RDW 13.3, Plt Count 267, MPV 11.1 07/14/23 14:53: Vitamin D 25-Hydroxy 59.5 07/14/23 14:53: Estimat Average Glucose 117 H, Hemoglobin A1c % 5.7 - Diagnostic Imaging Results Diagnostic Imaging Results: positive: Final report reviewed, Read independently - Diagnosis Diagnosis: Urinary retention. VINAYAK. Bilateral hydroureteronephrosis. Likely [id number] hormone julia metastatic prostate cancer - Consultation Note Consultation Note: 78-year-old male with new onset altered mental status in setting of urinary retention with VINAYAK, improving with catheter placement though with some postobstructive diuresis. Also with likely hormone julia metastatic prostate cancer and locally invasive prostate cancer - Plan Plan: The patient, his , and I discussed his issues. We discussed my significant concerns with a likely severe oncological issue going on. From a cancer perspective: I recommend a PSA test be sent with his next lab work. I normally recommend a biopsy of his prostate before pursuing treatment, but if his PSA is very high then hopefully we can forego this for now and start him on treatment. We discussed option of treatment including androgen deprivation therapy, chemotherapy, immunotherapy, antiandrogen therapy, etc. Once his PSA test is back I would recommend he start bicalutamide which has very few side effects but will block a flare affect of further ADT in the future. I performed prostate biopsies at this point in time in the office and so he would likely have to wait until discharge before we could pursue this From a urinary retension perspective: He should have basic metabolic panels performed at least daily. I think given his improved mental status he can forego IVF fluids at this point in time and just be given water to drink and saltine crackers for him to eat. If his electrolyte levels are becoming abnormal and he cannot keep up with the fluid intake requirements then he would need IVF for now while he equalizes. He should start on Flomax. The catheter should remain in place for now. This can be changed monthly, and once he has his ADT treatments and Flomax we can pursue voiding trials in the future. For for his bilateral hydroureteronephrosis: Please obtain a renal ultrasound in the next day or 2 to see if there is any improvement in this. With a catheter in place this hydroureteronephrosis should improve somewhat. If his kidney function does not improve and continues to have hydroureteronephrosis then this may be evidence of also some upper tract blockage likely from locally invasive prostate cancer. In this setting he may benefit from ureteral stents vs nephrostomy tubes. Once his electrolytes are stabilized and he is able to drink and eat normally, he is safe to be discharged from urology perspective. The rest of his care I will defer to the hospitalist team Will follow along
--- NOTE | 2023-07-16 17:00 | PROVIDER PROGRESS NOTE ---
Subjective - Prog Note Date Prog Note Date: 07/16/23 Prog Note Time: 16:58 - Subjective Pt reports feeling: No change Subjective: Very angry this morning. Refusing labs. I explained to him that I need to check his BUN and creatinine. I also need to check his potassium because he is on Aldactone. But he is refusing. Has pulled out his IV. Was able to be seen by urology and their note has been reviewed. Wang catheter has chronic hematuria. Yesterday he had a urine output of 5475 cc. Today, as of this dictation, he had a urine output of 2850 cc. Denies pain, headache, nausea. He does not know where he is. He is convinced that his has done this to him and is glaring at her. She is very upset because she does not want him to be angry at her. Current Medications - Current Medications Current Medications: Active Medications Acetaminophen (Acetaminophen 325 Mg Tablet) 650 mg PO Q4HR PRN PRN Reason: Pain 1 to 4, or Fever Heparin Sodium (Porcine) (Heparin 5,000 Unit/Ml Vial) 5,000 unit SUBQ BID [facility] Last Admin: 07/16/23 10:29 Dose: Not Given Hydralazine HCl (Hydralazine Inj 20 Mg/Ml Vial) 10 mg IVP Q8H PRN PRN Reason: Hypertensive Emergency Last Admin: 07/15/23 12:32 Dose: 10 mg Sodium Chloride (Normal Saline 0.9%) 1,000 mls @ 150 mls/hr IV .Q6H40M [facility] Last Infusion: 07/16/23 10:31 Dose: 0 mls/hr Lactated Ringer's (Lr) 1,000 mls @ 83.33 mls/hr IV .Q12H1M [facility] Last Infusion: 07/16/23 10:30 Dose: 0 mls/hr Metoprolol Succinate (Metoprolol Succinate 25 Mg Tablet) 25 mg PO DAILY [facility] Last Admin: 07/16/23 10:29 Dose: 25 mg Ondansetron HCl (Ondansetron 4 Mg/2 Ml Vial) 4 mg IVP Q6HR PRN PRN Reason: Nausea / Vomiting Sodium Chloride (Sodium Chloride Flush 0.9% 10 Ml Syringe) 10 ml IVP PRN PRN PRN Reason: NEEDED PER PROVIDER ORDERS Sodium Chloride (Sodium Chloride Flush 0.9% 10 Ml Syringe) 10 ml IVP 0100,0900,1700 LEILANI Last Admin: 07/16/23 10:30 Dose: 10 ml Objective - Vital Signs/Intake & Output Reviewed Vital Signs: Yes Vital Signs: Vital Signs x48h Temp Pulse Resp BP Pulse Ox 07/16/23 15:50 37.1 C 98 16 126/93 H 96 07/16/23 09:00 37.1 C 106 H 18 155/102 H 97 Intake & Output: Intake & Output 07/13/23 07/14/23 07/15/23 07/16/23 23:59 23:59 23:59 23:59 Intake Total 82.5 5421.000 3739.696 Output Total 5650 5475 2850 Balance -5567.5 -54.000 889.696 - Objective General Appearance: positive: No acute distress, Alert, Other (Frowning. Thin elderly white male) Eyes Bilateral: positive: PERRL, EOMI ENT: positive: No signs of dehydration Neck: positive: No JVD. negative: Stiff neck Respiratory: positive: No respiratory distress. negative: Wheezes, Rales, Rh onchi Cardiovascular: positive: Regular rate & rhythm Abdomen: positive: Non-tender, No organomegaly, Nml bowel sounds, No distention Skin: positive: Warm, Dry, Pallor. negative: Diaphoresis Extremities: positive: Non-tender, Full ROM, No pedal edema Neurologic/Psychiatric: positive: CN's nml (2-12), Motor nml (Got up out of the bed, pacing at the bedside, went to the bathroom all with standby assist), Disoriented to place, Disoriented to time. negative: Mood/affect nml (Angry, feels his is "set him up"), Facial droop, Slurred/abnml speech - Lab Results Fish Bones: 07/15/23 05:13 07/15/23 16:03 Assessment/Plan - Problem List (1) Postobstructive diuresis Impression: After Wang was inserted For acute bilateral obstructive uropathy, his urine output shows diuresis, as expected As of this dictation he has urinated 13,975 cc. A little under 6 L negative. Refusing IV fluids. He has pulled out his IVs. Plan: I cajoled him to stay and get blood work for tomorrow. He is willing to stay until tomorrow with an ultrasound. I truly appreciated the urology consult. He liked the urologist and feels that he will continue to work with him in the future. Reiterated to his that she needs to learn how to use the Wang with regards to emptying the bag be skin be going home on this (2) Acute kidney injury Conclusion/Plan: Due to bilateral obstruction, admitted with a creatinine of 7. Creatinine was 3.0 yesterday. He refused to let us do blood work today. Plan: I cajoled him into letting me do blood work tomorrow. Continue Wang Encourage p.o. intake. I have showed him the water container that is 500 cc. I would like him to drink at least 2 those a day. Repeat ultrasound tomorrow (3) AMS (altered mental status) Conclusion/Plan: Because may be cognitive deficit of aging, uremia, but not metastatic disease. Both his CAT scan and of the brain show confluent hyperintensities within the bilateral parietal occipital lobes. Overall appearance is nonspecific and differential includes posterior reversible encephalopathy syndrome, infection/i nflammation, multifocal leukoencephalopathy, hypoxic ischemic encephalopathy and much less likely underlying masses with subsequent vasogenic edema.Vitamin D level is 59. Vitamin B1 level has been received and results are pending. Plan: He is disoriented, but speech is intact, ambulation is intact. is willing to take him home and would like to take him home but will wait for the lab work and the ultrasound to be done tomorrow. (4) Enlarged prostate Conclusion/Plan: Most likely he has prostate cancer with mets. PSA has been reordered. Urology consult done and very much appreciated. Will start the patient on Flomax. Renal ultrasound tomorrow. Hopefully the patient will cooperate with blood work tomorrow. (5) Abnormal CT scan of head Conclusion/Plan: For follow-up MRI and there are no masses. Differential diagnosis discussed under altered mental status. (6) Hyperkalemia Conclusion/Plan: Not on any medications at home. Yesterday potassium was already starting to come down. He did not let us check labs today. Because he was 4.5, I feel I can wait until tomorrow. In order to reduce some of his agitation and anger, I have discontinued telemetry (8) HTN (hypertension) Conclusion/Plan: So far he is only received 1 dose of hydralazine IV push yesterday at noon. He is otherwise on metoprolol XL 25 mg daily. Blood pressure is 151/99, 155/102, 126/93. When his blood pressure was elevated he was pacing the room, and very angry. This afternoon he is sitting upright in his chair, still glaring at me, arms crossed across his chest, but calmer and more conversant. Plan: continue hydralazine for BP control Cont low-salt and renal diet (9) Tachycardia HR is as high as 110. Blood to be tachycardic from intravascular depletion. EKG is sinus tachycardia with poor R wave progression and no other changes. Fluids were temporarily increased per IV but he has pulled out the IV. Tachy cardia has resolved. Will continue to just try and push p.o. fluids
[2023-07-17 05:02] LABS: HCT - HEMATOCRIT 36.4 % (42.0-52.0); HGB - HEMOGLOBIN 11.6 g/dL (14.0-18.0); MEAN CORPUSCULAR HEMOGLOBIN 30.3 pg (27.0-31.0); MEAN CORPUSCULAR HGB CONC 31.9 g/dL (32.0-36.0); MEAN PLATELET VOLUME 10.9 fL (7.4-11.4); RED BLOOD COUNT 3.83 10^6/uL (4.70-6.10); RED CELL DISTRIBUTION WIDTH 13.2 % (12.0-15.0); WHITE BLOOD COUNT 9.5 x10^3/uL (4.8-10.8)
[2023-07-17 05:24] LABS: CALCIUM 8.8 mg/dL (8.5-10.3); CREATININE 1.3 mg/dL (0.6-1.3); POTASSIUM 3.8 mmol/L (3.5-4.5)
[2023-07-17] MEDS: ACETAMINOPHEN 325 MG TABLET PO PRN (16:15)
--- NOTE | 2023-07-17 17:20 | Ultrasound Report ---
PROCEDURE: Renal (Retroperitoneal) INDICATIONS: postobstruction followup TECHNIQUE: Real-time scanning was performed of the retroperitoneal organs, with image documentation. COMPARISON: CT of abdomen and pelvis dated 07/14/2023. FINDINGS: Kidneys: Kidneys are normal in size. Right kidney measures 10.5 cm long; left kidney measures 11.7 cm long. Right renal cortical thickness is 1.4 cm; left renal cortical thickness is 1.9 cm. Mild to moderate right-sided pelviectasis is seen measures up to 2.2 cm in diameter. Mild to moderate left-si ded hydronephrosis is also seen. No obstructing stone is noted. Bladder: Wang catheter is seen in a decompressed urinary bladder. Miscellaneous: No free abdominal fluid. IMPRESSION: Mild to moderate bilateral hydronephrosis. No solid-appearing renal lesion or nephrolithiasis. Wang catheter in a decompressed urinary bladder. Reviewed by: Jones Hernandez MD on 07/17/2023 5:18 PM PST Approved by: Jones Hernandez MD on 07/17/2023 5:18 PM PST Station ID: [id number]
--- NOTE | 2023-07-17 22:43 | PROVIDER PROGRESS NOTE ---
Assessment/Plan - Problem List (1) Postobstructive diuresis Assessment/Plan: After Wang was inserted For acute bilateral obstructive uropathy, his urine output shows diuresis, as expected As of this dictation he has urinated 13,975 cc. Refusing IV fluids. He has pulled out his IVs. Plan: Continue to monitor output from his Wang catheter. Patient to be discharged with Wang in place. Given he was markedly confused yesterday in the evening he will stay another day. (2) Acute kidney injury Conclusion/Plan: Due to bilateral obstruction, admitted with a creatinine of 7. Creatinine has decreased to 1.3. Plan: Continue Wang Encourage p.o. intake. Ultrasound performed today revealed mild to moderate bilateral hydronephrosis. (3) AMS (altered mental status) Conclusion/Plan: Because may be cognitive deficit of aging, uremia, but not metastatic disease. Both his CAT scan and of the brain show confluent hyperintensities within the bilateral parietal occipital lobes. Overall appearance is nonspecific and differential includes posterior reversible encephalopathy syndrome, infection/inflammation, multifocal leukoencephalopathy, hypoxic ischemic encephalopathy and much less likely underlying masses with subsequent vasogenic edema.Vitamin D level is 59. Vitamin B1 level has been received and results are pending. Plan: He is disoriented, but speech is intact, ambulation is intact. (4) Enlarged prostate Conclusion/Plan: Most likely he has prostate cancer with metastasis PSA has been reordered. Urology consult done and very much appreciated. Continue Flomax. (5) Abnormal CT scan of head Conclusion/Plan: For follow-up MRI and there are no masses. Differential diagnosis discussed under altered mental status. (6) Hyperkalemia Conclusion/Plan: Not on any medications at home. Yesterday potassium was already starting to come down. He did not let us check labs today. Because he was 4.5, I feel I can wait until tomorrow. In order to reduce some of his agitation and anger, I have discontinued telemetry (8) HTN (hypertension) Conclusion/Plan: Metoprolol 25 mg daily. Continue hydralazine as needed for blood pressure control. Continue low-salt and renal diet. (9) Tachycardia Continue to monitor. - Current Meds Current Meds: Current Medications Generic Name Dose Route Start Last Admin Trade Name Freq PRN Reason Stop Dose Admin Acetaminophen 650 mg 07/14/23 17:23 07/17/23 16:15 Acetaminophen 325 Mg Tablet PO 650 mg Q4HR PRN Administration Pain 1 to 4, or Fever Heparin Sodium (Porcine) 5,000 unit 07/14/23 21:00 07/17/23 21:31 Heparin 5,000 Unit/Ml Vial SUBQ 5,000 unit BID LEILANI Administration Hydralazine HCl 10 mg 07/15/23 11:49 07/15/23 12:32 Hydralazine Inj 20 Mg/Ml Vial IVP 10 mg Q8H PRN Administration Hypertensive Emergency Metoprolol Succinate 25 mg 07/15/23 12:00 07/17/23 08:08 Metoprolol Succinate 25 Mg Tablet PO 25 mg DAILY LEILANI Administration Sodium Chloride 10 ml 07/15/23 01:00 07/17/23 16:15 Sodium Chloride Flush 0.9% 10 Ml Syringe IVP 10 ml 0100,0900,1700 LEILANI Administration - Lab Result Fish Bone Diagrams: 07/17/23 04:15 07/17/23 04:15 Subjective - Subjective Patient Reports: Other (Alert. More cooperative today.) Objective Vital Signs: Vital Signs - 24 hr 07/17/23 07/17/23 07/17/23 03:06 08:08 16:01 Temperature 37.1 C 37.2 C 37.0 C Heart Rate [ 90 97 86 Brachial] Respiratory 20 18 20 Rate Blood Pressure 129/80 134/88 H 125/89 H [Right Brachial artery] O2 Saturation 96 98 96 Oxygen O2 Source Room air I&O (Last 24 Hrs): Intake and Output Totals x24h 07/15/23 07/16/23 07/17/23 23:59 23:59 23:59 Intake Total 5421.000 6399.833 1270 Output Total 5475 3800 2500 Balance -54.000 2599.833 -1230 General: Alert, Oriented x3 HEENT: PERRLA Neck: Supple, No JVD Neuro: Alert, Non Focal Cardiovascular: Regular rate, Normal S1, Normal S2 Respiratory: No respiratory distress, Breath sounds nml Abdomen: Normal bowel sounds, Soft Genitourinary: Normal Inspection, No Mass Extremities: No cyanosis, No edema Skin: No rashes - Results Results: Laboratory Results WBC 9.5 x10^3/uL (4.8-10.8) 07/17/23 04:15 RBC 3.83 10^6/uL (4.70-6.10) L 07/17/23 04:15 Hgb 11.6 g/dL (14.0-18.0) L 07/17/23 04:15 Hct 36.4 % (42.0-52.0) L 07/17/23 04:15 MCV 95.0 fL (80.0-94.0) H 07/17/23 04:15 MCH 30.3 pg (27.0-31.0) 07/17/23 04:15 MCHC 31.9 g/dL (32.0-36.0) L 07/17/23 04:15 RDW 13.2 % (12.0-15.0) 07/17/23 04:15 Plt Count 256 10^3/uL (130-450) 07/17/23 04:15 MPV 10.9 fL (7.4-11.4) 07/17/23 04:15 Neut # (Auto) 5.1 10^3/uL (1.5-6.6) 07/14/23 14:53 Lymph # (Auto) 0.7 10^3/uL (1.5-3.5) L 07/14/23 14:53 [place] # (Auto) 0.6 10^3/uL (0.0-1.0) 07/14/23 14:53 Eos # (Auto) 0.0 10^3/uL (0.0-0.7) 07/14/23 14:53 Baso # (Auto) 0.0 10^3/uL (0.0-0.1) 07/14/23 14:53 Absolute Nucleated RBC 0.00 x10^3/uL 07/14/23 14:53 Nucleated RBC % 0.0 /100WBC 07/14/23 14:53 ESR 45 mm/Hr (0-20) H 07/14/23 14:53 PT 12.0 secs (9.9-12.6) 07/14/23 15:15 INR 1.1 (0.8-1.2) 07/14/23 15:15 Sodium 138 mmol/L (135-145) 07/17/23 04:15 Potassium 3.8 mmol/L (3.5-4.5) 07/17/23 04:15 Chloride 107 mmol/L (101-111) 07/17/23 04:15 Carbon Dioxide 25 mmol/L (21-32) 07/17/23 04:15 Anion Gap 6.0 (6-13) 07/17/23 04:15 BUN 18 mg/dL (6-20) 07/17/23 04:15 Creatinine 1.3 mg/dL (0.6-1.3) 07/17/23 04:15 Estimated GFR (MDRD) 53 (>89) L 07/17/23 04:15 Glucose 101 mg/dL (74-104) 07/17/23 04:15 Estimat Average Glucose 117 mg/dL (70-100) H 07/14/23 14:53 Hemoglobin A1c % 5.7 % (4.27-6.07) 07/14/23 14:53 Calcium 8.8 mg/dL (8.5-10.3) 07/17/23 04:15 Phosphorus 4.2 mg/dL (2.5-5.0) 07/15/23 05:13 Magnesium 2.4 mg/dL (1.7-2.3) H 07/14/23 14:53 Total Bilirubin 0.3 mg/dL (0.2-1.0) 07/14/23 14:53 AST 7 IU/L (10-42) L 07/14/23 14:53 ALT 11 IU/L (10-60) 07/14/23 14:53 Alkaline Phosphatase 132 IU/L (42-121) H 07/14/23 14:53 Total Protein 7.5 g/dL (6.4-8.9) 07/14/23 14:53 Albumin 3.8 g/dL (3.2-5.5) 07/14/23 14:53 Globulin 3.7 g/dL (2.1-4.2) 07/14/23 14:53 Albumin/Globulin Ratio 1.0 (1.0-2.2) 07/14/23 14:53 Lipase 23 U/L (11-82) 07/14/23 14:53 Free PSA 13.081 ng/mL (0.16-2.81) H 07/17/23 09:03 % Free PSA 6 % (25-100) L 07/17/23 09:03 Total PSA 237.661 ng/mL (0.000-2.000) H 07/17/23 09:03 Whole Bld Vitamin B1 123.9 nmol/L (66.5-200.0) 07/14/23 14:53 Vitamin B12 829 pg/mL (180-914) 07/14/23 14:53 Vitamin D 25-Hydroxy 59.5 ng/mL (30.0-100.0) 07/14/23 14:53 TSH 2.38 uIU/mL (0.34-5.60) 07/14/23 14:53 Urine Color STRAW 07/14/23 14:11 Urine Clarity CLEAR (CLEAR) 07/14/23 14:11 Urine pH 6.5 PH (5.0-7.5) 07/14/23 14:11 Ur Specific [place] <=1.005 (1.002-1.030) 07/14/23 14:11 Urine Protein NEGATIVE mg/dL (NEGATIVE) 07/14/23 14:11 Urine Glucose (UA) NEGATIVE mg/dL (NEGATIVE) 07/14/23 14:11 Urine Ketones NEGATIVE mg/dL (NEGATIVE) 07/14/23 14:11 Urine Occult Blood NEGATIVE (NEGATIVE) 07/14/23 14:11 Urine Nitrite NEGATIVE (NEGATIVE) 07/14/23 14:11 Urine Bilirubin NEGATIVE (NEGATIVE) 07/14/23 14:11 Urine Urobilinogen 0.2 (NORMAL) E.U./dL (NORMAL) 07/14/23 14:11 Ur Leukocyte Esterase NEGATIVE (NEGATIVE) 07/14/23 14:11 Ur Microscopic Review NOT INDICATED 07/14/23 14:11 Urine Culture Comments NOT INDICATED 07/14/23 14:11 ABX Reporting Has patient been on IV antibiotics over the past 48 hours?: No
[2023-07-18 05:57] LABS: HCT - HEMATOCRIT 37.9 % (42.0-52.0); HGB - HEMOGLOBIN 12.3 g/dL (14.0-18.0); MEAN CORPUSCULAR HEMOGLOBIN 30.4 pg (27.0-31.0); MEAN CORPUSCULAR HGB CONC 32.5 g/dL (32.0-36.0); MEAN CORPUSCULAR VOLUME 93.8 fL (80.0-94.0); MEAN PLATELET VOLUME 10.8 fL (7.4-11.4); RED BLOOD COUNT 4.04 10^6/uL (4.70-6.10); RED CELL DISTRIBUTION WIDTH 13.2 % (12.0-15.0); WHITE BLOOD COUNT 8.4 x10^3/uL (4.8-10.8)
[2023-07-18 06:12] LABS: CREATININE 1.3 mg/dL (0.6-1.3); POTASSIUM 3.7 mmol/L (3.5-4.5)
[2023-07-18 08:25] VITALS: BP 127/87; O2SAT 98
--- NOTE | 2023-07-18 11:36 | Discharge Plan ---
Discharge Plan Problem Reviewed?: Yes Disposition: Home Health Service Condition: Stable Prescriptions: Metoprolol Succinate [Toprol Xl] 25 mg PO DAILY #30 tab Diet: Regular Activity Restrictions: Activity as Tolerated Shower Restrictions: No Driving Restrictions: No Health Concerns: You describe yourself as a very healthy man that has not seen a doctor in decades. A few months ago you began having increasing urinary urgency and frequency and thought you had diabetes so you cut back on sweets adn lost 8 pounds. You then began having bloo din your urine. As the weeks went on you were having less appetite, more fatigue. Then confusion started a month ago and has gotten worse. When your confusion got to be too severe, you and your agreed you needed to come in. We found you to have severe kidney failure from a blocked bladder. You could not urinate and your urine was backing up and causing you to have nausea, lack of appetite, confusion and probably halluciantions with paranoia. We inserted a mosley catheter into your penis to drain your bladder and your kidney failure has gradually resolved. We did blood tests to evaluate for prostate cancer and the PSA tumor maker was high at 237. We also found through CAT scans that you have metastasized cancer to multiple bones in your body. We were worried about tumor to the brain but you have changes of someone who has had very high blood pressure for years causing some damage to the brain tissue, not cancer. Plan of Treatment: You are being sent home with the mosley catheter in place. DO NOT REMOVE this until the specialist Dr. Bernardo Gary removes it. Dr. Gary is the Urologist who saw you in the hospital. He will be guiding you as to the next steps to verify prostate cancer and the treatment for that. You had high blood pressure in the hospital and I have started you on a new blood pressure medicine called Metoprolol. You will take it once a day. Please establish yourself with a new primary care provider LAZARO. The social workers have given you a list. Care Goals: While you cannot be cured of the cancer, you can get treatment to control the growth and the pain from the cancer. Assessment: At discharge the patient is now alert, much more oriented but still with word finding and date deficits. Additional Instructions or Follow Up instructions: At this point the main symptoms likely are related to an improper filtering and functioning of the kidneys due to a blockage at the out put of the bladder (most likely from an enlarged prostate). This will cause a back pressuring of the urine up into the kidneys so they do not filter appropriately and you can accumulate "waste material" in the system. 1 of these is called creatinine and your creatinine level was elevated at 7 which is well above normal. This accumulation in the bloodstream can cause the confusion and symptoms you are having. Commonly this will improve fairly promptly as the urine flow improves with the catheter. Your electrolytes were a bit elevated in correlation with the impaired urine output. There were not significant elevated but potassium, phosphorus, magnesium were all a bit elevated. Your head CT scan was showing some general change in the density of the tissue. This is nonspecific and an MRI was recommended by the radiologist. We can do this tomorrow most likely. We are having you stay in the hospital overnight to ensure you have improvement in your blood test functions in the urine flow remains appropriate and to get further testing tomorrow. No Smoking: If you smoke, Please STOP! Call for help. Follow-up with: Bernardo Gary MD [Provider Admit Priv/Credential] -
--- NOTE | 2023-07-18 12:20 | DISCHARGE SUMMARY ---
Discharge Summary Admit Date: 07/14/23 Discharge Date: 07/18/23 Discharging Provider: Jessica Hays MD Primary Care Provider: Bernardo Gary MD Code Status: Attempt Resuscitation Condition at Discharge: Stable Discharge Disposition: 01 Home, Self Care - DIAGNOSES Discharge Diagnoses with Status of Each Condition: 1. Metabolic encephalopathy due to uremia 2. Obstructive uropathy 3. Prostate cancer diffusely metastatic 4. Postobstructive diuresis 5. Acute kidney injury 6. Abnormal CT scan of head indicating possible previous PRES 7. Hyperkalemia 8. Hypertension, new diagnosis 9. Sinus tachycardia - HPI History of Present Illness: This is a 78-year-old male who has not seen a doctor in over 10 years and takes no prescription medications. He is brought in by his because of worsening confusion. She noticed that the confusion started about a month ago with trouble finding words and it is definitely worse over the past 1 week and this morning he said "How do I clear the code?", when he was washing dishes. He told his he did not know "which way was up or down." There has been increased urinary frequency and small amounts of urine eliminated. The patient himself thought he had diabetes because he was also thirsty, therefore he eliminated his sweets. With that, he lost 8 pounds in the last 1 month There has not been any fever, cough, dyspnea, abdominal pain, syncope, leg edema. In the ER he was found to have large amount of volume in his bladder on scanning and a Wang was inserted. 1400 cc was drained immediately and he another 2.5 L over several more hours. Brain CT imaging was done that showed an occipital mass of his brain with etiology having a large differential per the report, one of which could be metastasis, and an MRI was recommended. Abdomen/pelvis CT was done that showed a very enlarged prostate invading the rectum posteriorly, bilateral hydronephrosis and hydroureters, his Wang was seen draining the bladder. There are multiple areas of metastasis noted of the lumbar spine and femur. His labs came back showing a creatinine of 7 and potassium of 5.6. There are no prior labs for comparison at this hospital. Urinalysis was within normal limits. The ED provider spoke to me about this patient and he will be admitted to manage VINAYAK, hyperkalemia, hydronephrosis and urinary obstruction from a very large prostate with probable prostatic cancer, since the large prostate is invading the neighboring colon and he has mets seen of the spine and femur and possibly to the brain. His CODE KHUSHBOO larry is Full Code. (Andreea Sanchez) History - Past Medical History Cardiovascular: reports: None Respiratory: reports: None Neuro: reports: None Endocrine/Autoimmune: reports: None GI: reports: None : reports: None HEENT: reports: Chronic hearing loss Psych: reports: None Musculoskeletal: reports: None Derm: reports: None - CONSULTS | PROCEDURES Procedures: 1. Head CT with confluent occipital white matter disease in the differential diagnosis and broad and includes posterior reversible encephalopathy syndrome, infectious/inflammatory etiologies, chronic ischemic change, and less likely vasogenic edema from nonvisualized underlying mass lesion. MRI of the brain recommended. 2. Brain MRI with confluent hypodensities within the bilateral parietal occipital lobes as described without acute ischemic insult. No chronic ischemic insult. Confluent areas of T2 and FLAIR hyperintensity within the parietal occipital lobes bilaterally. Overall appearance is nonspecific and differential diagnosis includes press, infection, progressive multifocal leukoencephalopathy, hypoxic ischemic encephalopathy or less likely bilateral underlying masses with subsequent vasogenic edema. If repeat evaluation needs to be done, recommend with and without contrast on subsequent testing. 3. Abdomen/pelvis CT. Irregularly enlarged prostate that grossly measures 8.6 x 5.4 x 4.3 cm. It elevates the bladder floor. It is contiguous with the anterior wall of the rectum and shows irregular wall thickening probably reflecting direct invasion with prostate cancer. No bowel obstruction. Severe bilateral hydronephrosis and hydroureter associated with circumferential irregular wall thickening of the bladder. Wang is now in the bladder as well as air. There is a 4 x 3.2 cm posteriorly oriented bladder diverticulum. Left- sided diverticulosis without diverticulitis. No mesenteric or retroperitoneal adenopathy. Diffuse osteoblastic mets noted throughout the lumbar spine, pelvis, proximal femur. T12 wedge shaped compression fracture. Old left femoral neck and acetabular fracture with subchondral cyst and irregular mottling. Atrophy of the gluteal and right iliopsoas muscle. 4. Retroperitoneal ultrasound done to assess postobstructive diuresis. Mild to moderate bilateral hydronephrosis. 5. Total PSA is 237.661. Percent free PSA is 6. Free PSA 13.081. - HOSPITAL COURSE Hospital Course: The patient was admitted because of obstructive uropathy causing severe kidney failure. A Wang catheter was inserted and he had a brisk postobstructive diuresis. We found him to have diffusely metastatic disease. PSA was elevated to 237. CT scan showed cancer metastasized to multiple bones. We were worried about brain metastatic disease but the MRI showed that this might be possibly due to PRES syndrome. Urology would like to see the patient in follow-up. He stated that we should not remove the Wang until he was seen by him. He has discussed options with the family and will represent those options at the office visit in 2 weeks. While here he had elevated blood pressure. This is a new diagnosis for him and he was sent home on metoprolol once a day. I have asked him to establish himself with a primary care provider soon as possible. Social work has given him a list. At discharge temperature was 36.6. Temperature 97. 127/87 blood pressure. Respirations 18. 98% on room air. He is a cachectic ill-appearing gentleman who looks older than stated age. Slow-moving because of pain. But he is alert and oriented to person, place, time and situation. In spite of good orientation, he is exceedingly forgetful and I had to reintroduce myself almost on a daily basis. Shotty neck adenopathy. Clear lungs. Regular rate and rhythm with a soft systolic murmur. Benign abdominal exam. Wang in place. Hematuria in the bag. Neurologically he is hard of hearing, forgetful, but no focal deficits. He is discharged in stable condition. Greater than 30 minutes was spent coordinating discharge This document was made in part using voice recognition software. While efforts are made to proofread this document, sound alike and grammatical errors may occur. - ALLERGIES Allergies/Adverse Reactions: Allergies Allergy/AdvReac Type Severity Reaction Status Date / Time No Known Drug Allergies Allergy Verified 07/14/23 13:35 - MEDICATIONS Home Medications: Ambulatory Orders Medication Instructions Recorded Confirmed Acetaminophen [Tylenol] 650 mg PO Q4HR PRN tab 07/18/23 Metoprolol Succinate [Toprol Xl] 25 mg PO DAILY #30 tab 07/18/23 - LABS Result Diagrams: 07/18/23 05:41 07/18/23 05:41
== END 2023-07-18 13:49 | disposition home or self-care (01) | DRG 722 ==
LOC: ED 13:31 → MS2 17:23
PROVIDERS: ADMIT Internal Medicine; ATTEND Specialist
DX: R41.0 Disorientation, unspecified (principal); C61 Malignant neoplasm of prostate; E83.41 Hypermagnesemia; E83.39 Other disorders of phosphorus metabolism; N40.1 Benign prostatic hyperplasia with lower urinary tract symptoms; N13.8 Other obstructive and reflux uropathy; R39.11 Hesitancy of micturition; R35.0 Frequency of micturition; G93.41 Metabolic encephalopathy; N17.9 Acute kidney failure, unspecified; R33.8 Other retention of urine; C78.5 Secondary malignant neoplasm of large intestine and rectum; C79.51 Secondary malignant neoplasm of bone; N13.30 Unspecified hydronephrosis; R93.0 Abnormal findings on diagnostic imaging of skull and head, not elsewhere classified; E87.5 Hyperkalemia; I10 Essential (primary) hypertension; R00.0 Tachycardia, unspecified; H91.90 Unspecified hearing loss, unspecified ear; Z87.891 Personal history of nicotine dependence
CPT/HCPCS: 36415; 51702; 70450; 70551; 74176; 76770; 80048; 80053; 81003; 81599; 82306; 82607; 83036; 83690; 83735; 84100; 84132; 84153; 84154; 84425; 84443; 85025; 85027; 85610; 85651; 93005; 99285; A9270; J7120; 81001; 87086

== ENCOUNTER 2023-07-27 06:44 | Emergency (ER) | payer MEDICARE, OTHER ==
--- NOTE | 2023-07-27 06:57 | ED Physician Documentation ---
PD HPI MALE - Stated complaint Stated Complaint: CATH ISSUES - Chief complaint Chief Complaint: General - History obtained from History obtained from: Patient, Family - Additional information Additional information: Patient presents with indwelling Wang catheter which has been leaking from a tear in the collection bag over the past 3 days. The bag sustained this tear when he tripped while walking at home. Denies pain. The catheter has been draining into the collection bag and the patient's had applied tape to the area of tear but this has been decreasingly effective (noticing increasingly frequent leaking from the area of the tear). PD PAST MEDICAL HISTORY - Past Medical History Cardiovascular: None Respiratory: None Neuro: None Endocrine/Autoimmune: None GI: None : None HEENT: Chronic hearing loss Psych: None Musculoskeletal: None Derm: None - Past Surgical History Past Surgical History: Yes General: Appendectomy - Present Medications Home Medications: Ambulatory Orders Medication Instructions Recorded Confirmed Acetaminophen [Tylenol] 650 mg PO Q4HR PRN tab 07/18/23 Metoprolol Succinate [Toprol Xl] 25 mg PO DAILY #30 tab 07/18/23 - Allergies Allergies/Adverse Reactions: Allergies Allergy/AdvReac Type Severity Reaction Status Date / Time No Known Drug Allergies Allergy Verified 07/27/23 06:58 - Social History Does the pt smoke?: No Smoking Status: Never smoker Does the pt drink ETOH?: Yes Does the pt have substance abuse?: No - Immunizations Immunizations are current?: Yes - POLST Patient has POLST: No PD ED PE NORMAL - Vitals Vital signs reviewed: Yes - General General: Alert and oriented X 3, No acute distress, Well developed/nourished Results - Vitals Vitals: Vital Signs - 24 hr 07/27/23 06:51 Temperature 36.9 C Oxygen O2 Source Room air PD Medical Decision Making - ED course Complexity details: considered differential, d/w patient, d/w family ED course: Patient presents with chief and only complaint of leaking Wang catheter bag since falling 3 days ago. He has no other complaints. The Wang tubing is left in place, but the plastic tubing distal to the Wang catheter itself, along with the collection bag, are replaced. Departure - Departure Disposition: 01 Home, Self Care Clinical Impression: Wang catheter problem Condition: Good Instructions: ED Catheter Care Wang
[2023-07-27 07:06] VITALS: BP 107/69; O2SAT 99
== END 2023-07-27 07:03 | disposition home or self-care (01) ==
LOC: ED 06:44
DX: T83.031A Leakage of indwelling urethral catheter, initial encounter (principal); Y82.8 Other medical devices associated with adverse incidents
CPT/HCPCS: 99281; 99283

== ENCOUNTER 2023-08-19 08:12 | Day surgery (SDC) | payer MEDICARE, OTHER ==
[2023-08-19] MEDS: LACTATED RINGERS 1,000 ML IV ONE ×2 (08:51→10:26)
[2023-08-19] MEDS ORDERED: PROPOFOL 200 MG/20 ML VIAL IVP ONE (09:21)
[2023-08-19] MEDS ORDERED: MIDAZOLAM 2 MG/2 ML VIAL ONE (09:21)
[2023-08-19] MEDS ORDERED: fentaNYL 100 MCG/2 ML VIAL ONE (09:21)
--- NOTE | 2023-08-19 09:23 | ANESTHESIA ---
Pre-Anesthesia VS, & Labs - Diagnosis elevated PSA - Procedure TRUS biopsy Vital Signs: Temp Pulse Resp BP Pulse Ox O2 Flow Rate 37.1 C 86 18 132/85 H 98 08/19/23 08:52 08/19/23 08:52 08/19/23 08:52 08/19/23 08:52 08/19/23 08:52 Height: 5 ft 5 in Weight (kg): 69.8 kg Body Mass Index: 25.6 BMI Classification: Overweight - NPO >8 hours Home Medications and Allergies Home Medications: Ambulatory Orders Ascorbic Acid [Vitamin C] 1,000 mg PO DAILY 08/12/23 Multivitamin 1 each PO DAILY 08/12/23 Ascorbic Acid [Vitamin C] 1,000 mg PO DAILY 08/12/23 Multivitamin 1 each PO DAILY 08/12/23 Allergies/Adverse Reactions: Allergies Allergy/AdvReac Type Severity Reaction Status Date / Time No Known Drug Allergies Allergy Verified 07/27/23 06:58 Anes History & Medical History - Anesthetic History Anesthesia Complications: reports: No previous complications - Medical History Cardiovascular: reports: Hypertension Pulmonary: reports: None Gastrointestinal: reports: None Urinary: reports: Indwelling catheter Neuro: reports: None Musculoskeletal: reports: None Endocrine/Autoimmune: reports: None Blood Disorders: reports: None Skin: reports: None Smoking Status: Never smoker History of Cancer?: No - Surgical History General: reports: Appendectomy, Hiatal hernia repair Exam General: Alert, Oriented x3 Dental: WNL Mouth Opening: Greater than 4 Fingerbreadths Neck Mobility: Normal Mallampati classification: I Thyromental Distance: greater than 6 cm Respiratory: Lungs clear Cardiovascular: Regular rate Plan Anesthesia Type: Total IV Consent for Procedure(s) Verified and Reviewed: Yes Code Status: Attempt Resuscitation ASA classification: 2-Mild systemic disease Is this case an emergency?: No
[2023-08-19] MEDS ORDERED: LIDOCAINE-MPF 1% 30 ML VIAL ONE (09:32)
[2023-08-19] MEDS: LIDOCAINE JELLY 2% 6 ML JEL.PF.APP UR ONE (10:05)
[2023-08-19] MEDS: LIDOCAINE 1% 50 ML MDV SUBQ ONE (10:05)
[2023-08-19] MEDS ORDERED: HYDROcod/ACETAM 5/325 MG TABLET PO PRN (10:31)
--- NOTE | 2023-08-19 10:35 | Discharge Plan ---
Discharge Plan Problem Reviewed?: Yes Disposition: Home, Self Care Condition: Good Activity Restrictions: Additional Comments (as instructed) Shower Restrictions: No Driving Restrictions: No Instruction Topics: Biopsy Ultrasound Transrectal, Catheter Bag Urinary Empty Clean Additional Instructions or Follow Up instructions: You have a follow-up with Dr. Gary on August 28 at 1 PM please arrive ten minutes early No Smoking: If you smoke, Please STOP! Call for help. Follow-up with: Bernardo Gary MD [Provider Admit Priv/Credential] -
--- NOTE | 2023-08-19 10:39 | OPERATIVE REPORT ---
Operative Report - General Procedure Date: 08/19/23 Planned Procedure: Transrectal ultrasound-guided prostate biopsy and catheter exchange Pre-Op Diagnosis: Elevated PSA, urinary retention Procedure Performed: Transrectal ultrasound-guided prostate biopsy, exam under anesthesia, catheter exchange Post Op Diagnosis: Elevated PSA, urinary retention - Procedure Note Primary Surgeon: Abdirahman Anesthesia Provider: EAMON Frederick Anesthesia Technique: MAC Estimated Blood Loss (mL): 5 Findings: 63 cc prostate Fixed prostate with likely rectal involvement. Very difficult to identify prostate tissue compared to surrounding tissues Complications: none - Other Other Information/Narrative: After informed consent was obtained the patient was brought to the OR and laid in the supine position. He was then anesthetized per anesthesia protocols. He was then placed in the left lateral decubitus position with the left side down. A formal timeout was performed reconfirming the patient and procedure. A transrectal ultrasound probe was placed per rectum. We could see at that point that his prostate and surrounding tissues were very similarly echoic. I remove the probe and performed a exam under anesthesia which showed a fixed prostate with likely rectal involvement. Diffusely rockhard. In order to facilitate the view we then placed 120 cc of sterile water via his catheter into the bladder as a hypoechoic backdrop. The probe was reinserted and we could see better the tissues. Using 18-gauge needle we placed 5 cc of 1% lidocaine lateral to the prostate on both sides. We then took routine 12 core samples of the prostate equally from either side. We took samples from the left and right side, the base, mid, apex and from the medial and lateral positions. For a total of 12. The patient was then laid supine and we removed his old catheter and placed a new 16 Vietnamese Wang catheter per urethra sterilely. He had some mild bleeding from his urethral meatus from the previous biopsy along with a mild amount of hematuria. The patient was reversed from anesthesia and brought to the PACU without further incident. He will follow-up next week for pathology discussion.
[2023-08-19 11:15] VITALS: BP 116/77; O2SAT 99
--- NOTE | 2023-08-19 12:11 | ANESTHESIA POST OP EVALUATION ---
Anesthesia Post Eval - Post Anesthesia Eval Vitals: Last Vital Signs Temp 36.9 C 08/19/23 11:00 Pulse 69 08/19/23 11:00 Resp 18 08/19/23 11:00 BP 116/77 08/19/23 11:00 Pulse Ox 99 08/19/23 11:00 O2 Flow Rate CV Function Including HR & BP: Stable Pain Control: Satisfactory Nausea & Vomiting: Negative Mental Status: Baseline Respiratory Status: Airway Patent Hydration Status: Satisfactory Anesthesia Complications: None
== END 2023-08-19 08:13 | disposition home or self-care (01) ==
LOC: SDS 08:12
PROVIDERS: ATTEND Urology
PROC: 0VB03ZX Excision of Prostate, Percutaneous Approach, Diagnostic (ICD-10-PCS; principal; 2023-08-19 10:15)
DX: C61 Malignant neoplasm of prostate (principal); R33.9 Retention of urine, unspecified; I10 Essential (primary) hypertension
CPT/HCPCS: 51702; 55700; J7120

== ENCOUNTER 2023-12-30 12:17 | Day surgery (SDC) | payer MEDICARE, OTHER ==
[~2023-12-30 12:17] MED LIST: ceFAZolin 2 GM VIAL ONE
[2023-12-30] MEDS: LACTATED RINGERS 1,000 ML IV ONE ×2 (12:22→15:50)
--- NOTE | 2023-12-30 12:57 | ANESTHESIA ---
Pre-Anesthesia VS, & Labs - Diagnosis urinary retention - Procedure urolift Vital Signs: Temp Pulse Resp BP Pulse Ox O2 Flow Rate 37.1 C 79 16 136/86 H 97 0 12/30/23 12:34 12/30/23 12:34 12/30/23 12:34 12/30/23 12:34 12/30/23 12:34 12/30/23 12:34 Height: 5 ft 6 in Weight (kg): 72.7 kg Body Mass Index: 25.8 BMI Classification: Overweight Home Medications and Allergies Ascorbic Acid [Vitamin C] 1,000 mg PO DAILY 08/12/23 Multivitamin 1 each PO DAILY 08/12/23 Enzalutamide [Xtandi] 160 mg PO DAILY 11/20/23 Allergies/Adverse Reactions: Allergies Allergy/AdvReac Type Severity Reaction Status Date / Time No Known Drug Allergies Allergy Verified 10/09/23 14:13 Anes History & Medical History - Medical History Cardiovascular: reports: Hypertension Pulmonary: reports: None Gastrointestinal: reports: None Urinary: reports: Indwelling catheter, Other Neuro: reports: None Musculoskeletal: reports: None Endocrine/Autoimmune: reports: None Blood Disorders: reports: None Skin: reports: None Smoking Status: Never smoker - Surgical History General: reports: Appendectomy, Hiatal hernia repair Exam General: Alert, Oriented x3, Cooperative Dental: WNL Mouth Openin Fingerbreadth Mallampati classification: II Thyromental Distance: 4-6 cm Plan Anesthesia Type: General, MAC Consent for Procedure(s) Verified and Reviewed: Yes Code Status: Attempt Resuscitation ASA classification: 3-Severe systemic disease Is this case an emergency?: No
[2023-12-30] MEDS ORDERED: PROPOFOL 500 MG/50 ML 500 MG/50 ML VIAL ONE (13:43)
[2023-12-30] MEDS ORDERED: LIDOCAINE 2% URO-JET 5 ML SYRINGE UR ONE (14:31)
[2023-12-30] MEDS ORDERED: HYDROcod/ACETAM 5/325 MG TABLET PO PRN (14:54)
[2023-12-30] MEDS ORDERED: ONDANSETRON 4 MG/2 ML VIAL IVP PRN (14:54)
--- NOTE | 2023-12-30 14:58 | Discharge Plan ---
Discharge Plan Problem Reviewed?: Yes Disposition: Home, Self Care Condition: Good Prescriptions: Docusate Sodium 100Mg Capsule [Colace 100Mg Capsule] 100 mg PO DAILY #7 cap oxyCODONE [Roxicodone] 5 mg PO Q4H PRN #10 tablet PRN Reason: Pain Diet: Regular Activity Restrictions: Additional Comments (as instructed) Shower Restrictions: No Driving Restrictions: No Instruction Topics: Catheter Bag Urinary Empty Clean Additional Instructions or Follow Up instructions: You have a follow-up with Dr. Gary's office on January 07 at 9 AM. Please arrive 15 minutes early No Smoking: If you smoke, Please STOP! Call for help. Follow-up with: Bernardo Gary MD [Provider Admit Priv/Credential] -
[2023-12-30] MEDS: LIDOCAINE 2% URO-JET 5 ML SYRINGE UR ONE ×2 (14:59)
--- NOTE | 2023-12-30 15:01 | ANESTHESIA POST OP EVALUATION ---
Anesthesia Post Eval - Post Anesthesia Eval Vitals: Last Vital Signs Temp 37.1 C 12/30/23 12:34 Pulse 79 12/30/23 12:34 Resp 16 12/30/23 12:34 BP 136/86 H 12/30/23 12:34 Pulse Ox 97 12/30/23 12:34 O2 Flow Rate 0 12/30/23 12:34 CV Function Including HR & BP: Stable Pain Control: Satisfactory Nausea & Vomiting: Negative Mental Status: Baseline Respiratory Status: Airway Patent Hydration Status: Satisfactory Anesthesia Complications: None
--- NOTE | 2023-12-30 15:04 | OPERATIVE REPORT ---
Operative Report - General Procedure Date: 12/30/23 Planned Procedure: Cystoscopy, UroLift Pre-Op Diagnosis: BPH with urinary retention Procedure Performed: Cystoscopy, UroLift (7 implants) Post Op Diagnosis: BPH with urinary retention - Procedure Note Primary Surgeon: Abdirahman Anesthesia Provider: EAMON Weiss Anesthesia Technique: MAC Pathology: none Estimated Blood Loss (mL): 1 Findings: 7 urolift implants placed Complications: none - Other Other Information/Narrative: After informed sent was obtained the patient brought to the OR and laid the supine position. The patient was anesthetized per anesthesia protocols. His catheter was removed. He was then prepped and draped in usual sterile fashion in the dorsolithotomy position. A formal timeout was performed reconfirming the patient and procedure. A UroLift cystoscope was advanced easily per urethra into the bladder. His bladder had some noted marked trabeculations and posterior erythema and edema consistent with catheter cystitis. He had a prominent median bar and bilateral lateral lobe obstruction of the prostate. Using UL 2 implants we tacked the lateral lobe prostate tissue away approximately half a centimeter distal from the bladder neck. We used 1 in either side. We then used ATC device to push away the median bar tissue and we deployed to implants using the ATC device in the median tissue tacking it from patient right to patient left. We then returned to the UL 2 device and we used this to tack the lateral tissue immediately proximal to the verumontanum. We deployed 1 implants on either side for this. Then using our obturator we reinspected the lumen and it was wide open with a knob of tissue coming from the right side proximal to the verumontanum. We then used the UL 2 device to deploy 1 final implant on that right tissue tacking it away. He now had a wide open anterior channel. A total of 7 implants were used, 5 were a UL2 and 2 were an ATC. We then placed a 22 Czech three-way Mosley. He was brought to PACU with mosley in place.
[2023-12-30 15:33] VITALS: O2SAT 96
[2023-12-30 15:51] VITALS: BP 145/91
== END 2023-12-30 12:18 | disposition home or self-care (01) ==
LOC: SDS 12:17
PROVIDERS: ATTEND Urology
DX: N40.1 Benign prostatic hyperplasia with lower urinary tract symptoms (principal); N13.8 Other obstructive and reflux uropathy; R33.8 Other retention of urine; C61 Malignant neoplasm of prostate
CPT/HCPCS: 52441; 52442; J7120; L8699